=== PATIENT | male | born 1990 | race Caucasian/White ===

== ENCOUNTER 2018-12-04 13:14 | Inpatient (IN) | payer OTHER ==
[2018-12-04 16:02] VITALS: BMI 23.6
--- NOTE | 2018-12-04 20:15 | HP ---
CIWA Score - Admission Criteria OASAS Guidelines: Admission for Medically Managed Detox: Requires at least one of the followin. CIWA greater than 12 2. Seizures within the past 24 hours 3. Delirium tremens within the past 24 hours 4. Hallucinations within the past 24 hours 5. Acute intervention needed for co occurring medical disorder 6. Acute intervention needed for co occurring psychiatric disorder 7. Severe withdrawal that cannot be handled at a lower level of care (continued vomiting, continued diarrhea, abnormal vital signs) requiring intravenous medication and/or fluids 8. Admission ROS S - HPI Chief Complaint: Seeking admission to Rehab for heroin and Xanax dependence Allergies/Adverse Reactions: Allergies Allergy/AdvReac Type Severity Reaction Status Date / Time No Known Allergies Allergy Verified 12/04/18 17:52 History of Present Illness: 28 years old male with a 10 years history of heroin and Xanax dependence is seeking admission to Rehab. Patient has been in Rehab. at the [facility] in [place]. He has medical history of Hep. C and anxiety. This is his first admission to [facility]. He denies suicide attempt and suicidal ideation at this time. He is on methadone 150mg at [facility]. Last day medicated was today, 12/04/2018. Dose is yet to be verified by the nurse. Wound care daily to bilateral ankle ordered. Exam Limitations: No Limitations - Ebola screening Have you traveled outside of the country in the last 21 days: No Have you had contact with anyone from an Ebola affected area: No Have you been sick,other than usual withdrawal symptoms: No Do you have a fever: No - Review of Systems Constitutional: No Symptoms Reported EENT: reports: No Symptoms Reported Respiratory: reports: No Symptoms reported Cardiac: reports: No Symptoms Reported GI: reports: No Symptoms Reported : reports: No Symptoms Reported Musculoskeletal: reports: No Symptoms Reported Integumentary: reports: No Symptoms Reported Neuro: reports: No Symptoms reported Endocrine: reports: No Symptoms Reported Hematology: reports: No Symptoms Reported Psychiatric: reports: No Sypmtoms Reported, Mood/Affect Appropiate, Orientated x3 Other Systems: Reviewed and Negative Patient History - Patient Medical History Hx Anemia: No Hx Asthma: No Hx Chronic Obstructive Pulmonary Disease (COPD): No Hx Cancer: No Hx Cardiac Disorders: No Hx Congestive Heart Failure: No Hx Hypertension: No Hx Hypercholesterolemia: No HX Cerebrovascular Accident: No Hx Seizures: No Hx Diabetes: No Hx Gastrointestinal Disorders: No Hx Liver Disease: Yes (Hep C.) Hx Genitourinary Disorders: No Hx Sexually Transmitted Disorders: No Hx Renal Disease (ESRD): No Hx Thyroid Disease: No Hx Human Immunodeficiency Virus (HIV): No (Negative 2018) Hx Hepatitis C: Yes (Not treated) Hx Depression: No Hx Suicide Attempt: No (Denies suicide attempt/suicidal ideation at this time) Hx Bipolar Disorder: No Hx Schizophrenia: No Other Medical History: Anxiety -Not on treatment - Patient Surgical History Past Surgical History: No - PPD History Previous Implant?: Yes Documented Results: Negative w/o proof Implanted On Prior [facility] Admission?: No PPD to be Administered?: Yes - Reproductive History Patient is a Female of Child Bearing Age (11 -55 yrs old): No (MALE) - Smoking Cessation Smoking history: Current every day smoker Have you smoked in the past 12 months: Yes Aproximately how many cigarettes per day: 20 Hx Chewing Tobacco Use: No Initiated information on smoking cessation: Yes 'Breaking Loose' booklet given: 12/04/18 - Substance & Tx. History Hx Alcohol Use: No Hx Substance Use: Yes Substance Use Type: Cocaine, Heroin, Tranquilizers Hx Substance Use Treatment: Yes ([place], [place]) Family Disease History - Family Disease History Family History: Denies Admission Physical Exam [facility]HS - Vital Signs Vital Signs: Vital Signs - 24 hr 12/04/18 15:58 Temperature 98.3 F Pulse Rate 70 Respiratory 18 Rate Blood Pressure 116/70 - Physical General Appearance: Yes: Within Normal Limits, No Apparent Distress HEENTM: Yes: EOMI, Normal ENT Inspection, Normocephalic, Normal Voice, BOO Respiratory: Yes: Lungs Clear, Normal Breath Sounds, No Respiratory Distress Neck: Yes: Supple Breast: Yes: Breast Exam Deferred Cardiology: Yes: Regular Rhythm, Regular Rate Abdominal: Yes: Normal Bowel Sounds, Soft Genitourinary: Yes: Within Normal Limits Back: Yes: Normal Inspection Musculoskeletal: Yes: Within Normal Limits Neurological: Yes: Normal Mood/Affect Integumentary: Yes: Warm Lymphatic: Yes: Within Normal Limits - Diagnostic (1) Hep C w/o coma, chronic Current Visit: Yes Status: Chronic (2) Anxiety Current Visit: Yes Status: Chronic (3) Nicotine dependence Current Visit: Yes Status: Chronic Qualifiers: Nicotine product type: cigarettes Substance use status: uncomplicated Qualified Code(s): F17.210 - Nicotine dependence, cigarettes, uncomplicated (4) Heroin dependence Current Visit: Yes Status: Chronic (5) Cocaine dependence Current Visit: Yes Status: Chronic Qualifiers: Substance use status: uncomplicated Qualified Code(s): F14.20 - Cocaine dependence, uncomplicated (6) Methadone maintenance therapy patient Current Visit: Yes Status: Chronic Cleared for Admission [facility] - Detox or Rehab [facility] Level of Care: Observation Bed Claeared for Rehab Admission: Yes [facility] Breath Alcohol Content Breath Alcohol Content: 0 Urine Drug Screen - Results Drug Screen Negative: No Urine Drug Screen Results: THC-Marijuana, OPI-Opiates, MTD-Methadone Inpatient Rehab Admission - Initial Determination Are CD services needed?: Yes Free of communicable disease: Yes Not in need of hospitalization: Yes - Rehab Admission Criteria Previous failed treatment: Yes Poor recovery environment: Yes Comorbidities: Yes Lacks judgement: No Patient is meeting Inpatient Rehab admission criteria:: Yes
[2018-12-04] MEDS ORDERED: NICOTINE POLACRILEX 2 MG GUM BUC PRN (20:29)
[2018-12-04] MEDS ORDERED: MENTHOL/PHENOL 1 EACH UD MM PRN (20:29)
[2018-12-04] MEDS ORDERED: IBUPROFEN 400 MG TABLET (FP) PO PRN (20:29)
[2018-12-04] MEDS ORDERED: ACETAMINOPHEN 325 MG TABLET (FP) PO PRN (20:29)
[2018-12-04] MEDS ORDERED: LOPERAMIDE HCL 2 MG CAPSULE PO PRN (20:29)
[2018-12-04] MEDS ORDERED: P-EPHED 60MG/TRIPROLIDI 2.5MG TABLET PO PRN (20:29)
[2018-12-04] MEDS ORDERED: MAG HYDROX/AL HYDROX/SIMETH 30 ML UNIT-DOSE CUP PO PRN (20:29)
[2018-12-04] MEDS ORDERED: MAGNESIUM CITRATE 300 ML BOTTLE PO PRN (20:29)
[2018-12-04] MEDS ORDERED: guaiFENesin/D-METHORPHAN HB 10 ML UNIT-DOSE CUPS PO PRN (20:29)
[2018-12-04] MEDS ORDERED: MAGNESIUM HYDROX 2400MG/30ML ORAL SUSPENSION 30 ML CUP PO PRN (20:29)
[2018-12-04] MEDS: TOLNAFTATE 1% POWDER 45 GM POW TP SCH (23:51)
[2018-12-04] MEDS ORDERED: TUBERCULIN PPD 5 TU/0.1ML VIAL ID ONE (23:55)
[2018-12-04] MEDS: MELATONIN 5 MG TABLETS PO PRN (23:57)
[2018-12-04] MEDS: hydrOXYzine PAMOATE 25 MG CAPSULE (FP) PO PRN (23:58)
[2018-12-05] MEDS ORDERED: METHADONE HCL 10 MG TABLET PO SCH (09:30)
[2018-12-05 10:00] LABS: HEMATOCRIT 42.1 % (35.4-49); HEMOGLOBIN 13.6 GM/dL (11.7-16.9); MCH 28.4 pg (25.7-33.7); MCHC 32.4 g/dl (32.0-35.9); MEAN CELL VOLUME 87.5 fl (80-96); MEAN PLT VOLUME 8.7 fl (7.5-11.1); PLATELET COUNT 234 K/MM3 (134-434); RBC 4.81 M/mm3 (4.00-5.60); RDW 12.7 % (11.9-15.9); WHITE BLOOD COUNT 6.9 K/mm3 (4.0-10.0)
[2018-12-05 10:10] LABS: URINE APPEARANCE CLEAR; URINE BILIRUBIN NEGATIVE (<2.0 mg/dL); URINE COLOR YELLOW; URINE GLUCOSE (UA) NEGATIVE (NEGATIVE); URINE KETONE NEGATIVE (NEGATIVE); URINE LEUK ESTERASE NEGATIVE (NEGATIVE); URINE NITRITE NEGATIVE (NEGATIVE); URINE PROTEIN NEGATIVE (NEGATIVE); URINE UROBILINOGEN NEGATIVE mg/dL (0.2-1.0)
[2018-12-05] MEDS ORDERED: METHADONE HCL 10 MG TABLET PO ONE (10:22)
[2018-12-05] MEDS ORDERED: METHADONE HCL 10 MG TABLET ONE (10:39)
[2018-12-05] MEDS ORDERED: METHADONE HCL 40 MG DISPERSABLE TABLET ONE (10:40)
[2018-12-05] MEDS: NICOTINE 21 MG/24 HOURS TOPICAL PATCH TD SCH (10:42)
[2018-12-05] MEDS: PRENATAL VITAMINS W/ FOLIC ACID TABLET (FP) PO SCH (10:42)
[2018-12-05] MEDS ORDERED: METHADONE 120 MG, METHADONE 30 MG PO ONE (10:45)
[2018-12-05] MEDS: TOLNAFTATE 1% POWDER 45 GM POW TP SCH ×2 (10:46→21:43)
[2018-12-05 11:01] LABS: ALBUMIN 3.2 g/dl (3.4-5.0); ALK PHOS 81 U/L (45-117); ANION GAP 6 MMOL/L (8-16); BILIRUBIN,TOTAL 0.3 mg/dL (0.2-1); BLOOD UREA NITROGEN 11 mg/dL (7-18); CALCIUM 8.5 mg/dL (8.5-10.1); CHLORIDE 105 mmol/L (98-107); CO2 27 mmol/L (21-32); CREATININE 0.8 mg/dL (0.55-1.3); GLUCOSE,RANDOM 75 mg/dL (74-106); POTASSIUM 4.2 mmol/L (3.5-5.1); SGOT/AST 27 U/L (15-37); SGPT/ALT 33 U/L (13-61); SODIUM 138 mmol/L (136-145); TOT PROT 6.7 g/dl (6.4-8.2)
[2018-12-05] MEDS: MELATONIN 5 MG TABLETS PO PRN (21:42)
[2018-12-05] MEDS: THIAMINE HCL 100 MG TABLET (FP) PO SCH ×2 (21:42)
[2018-12-05] MEDS: hydrOXYzine PAMOATE 25 MG CAPSULE (FP) PO PRN (21:42)
[2018-12-06] MEDS ORDERED: METHADONE HCL 40 MG DISPERSABLE TABLET ONE (05:43)
[2018-12-06] MEDS ORDERED: METHADONE HCL 10 MG TABLET ONE (05:43)
[2018-12-06] MEDS: METHADONE 120 MG, METHADONE 30 MG PO SCH (06:14)
[2018-12-06] MEDS: TOLNAFTATE 1% POWDER 45 GM POW TP SCH ×2 (09:35→21:12)
[2018-12-06] MEDS: PRENATAL VITAMINS W/ FOLIC ACID TABLET (FP) PO SCH (09:35)
[2018-12-06] MEDS: NICOTINE 21 MG/24 HOURS TOPICAL PATCH TD SCH (09:35)
[2018-12-06] MEDS: THIAMINE HCL 100 MG TABLET (FP) PO SCH (21:11)
[2018-12-06] MEDS: hydrOXYzine PAMOATE 25 MG CAPSULE (FP) PO PRN (21:11)
[2018-12-06] MEDS: MELATONIN 5 MG TABLETS PO PRN (21:11)
[2018-12-07] MEDS ORDERED: METHADONE HCL 10 MG TABLET ONE (02:54)
[2018-12-07] MEDS ORDERED: METHADONE HCL 40 MG DISPERSABLE TABLET ONE (02:54)
[2018-12-07] MEDS: METHADONE 120 MG, METHADONE 30 MG PO SCH (06:09)
[2018-12-07 06:40] VITALS: BP 129/76; PULSE 70; TEMP 98
--- NOTE | 2018-12-07 07:56 | HP ---
Psychiatrist Admission - Data Date of interview: 12/07/18 Admission source: [facility] Identifying data: This is the first [facility] admission for this 28 years old male, unemployed with no source of income, homeless Medical History: Significant for treatment of hepatitis C. Patient is on methadone 150 g/day. Smokes cigarettes 1 ppd Psychiatric History: Reports receiving treatment for anxiety for the past 10 years. Reports being tried on Klonopin, Xanax, Valium and Buspar. Reports receiving treatment last 2 months ago in [place]. Claims that he was prescribed Xanax 2 mg po QID. Denies history of previous hospitalization or suicidal attempt. At present, denies feeling anxious, depressed and reports sleeping fairly well Physical/Sexual Abuse/Trauma History: Denies history of emotional, physical or sexual abuse as well as DV relationship. No service Additional Comment: Denies criminal history Vital Signs: Vital Signs - 24 hr 12/07/18 12/07/18 12/07/18 00:30 03:26 06:00 Temperature 98.0 F Pulse Rate 70 Respiratory 16 16 18 Rate Blood Pressure 129/76 Allergies/Adverse Reactions: Allergies Allergy/AdvReac Type Severity Reaction Status Date / Time No Known Allergies Allergy Verified 12/04/18 17:52 Date of last physical exam: 12/04/18 Concur with the findings of this exam: Yes - Substance Abuse/Tx History Hx Alcohol Use: No Hx Substance Use: Yes Substance Use Type: Cocaine (Started using cocaine t age 16, consumes $40 worth daily. Last used on 12/03/18), Heroin (Started using heroin at age 16, consumes 15 bags daily. Last used on 12/03/18), Tranquilizers (Started using xanax at age 16, consumes 10 mg daily. Last used on 12/03/18) Mental Status Exam - Mental Status Exam Alert and Oriented to: Time, Place, Person Cognitive Function: Fair Patient Appearance: Well Groomed Mood: Hopeful, Euthymic Patient Behavior: Cooperative Voice Loudness: Normal Thought Process: Intact, Goal Oriented Thought Disorder: Not Present Hallucinations: Denies Suicidal Ideation: Denies Homicidal Ideation: Denies Insight/Judgement: Fair Sleep: Fair Appetite: Good Muscle strength/Tone: Normal Gait/Station: Normal Psychiatric Findings - Problem List ([place] 1, 2,3) (1) Cocaine dependence Current Visit: Yes Status: Acute Qualifiers: Substance use status: uncomplicated Qualified Code(s): F14.20 - Cocaine dependence, uncomplicated (2) Sedative hypnotic or anxiolytic dependence Current Visit: Yes Status: Acute (3) Opioid dependence on agonist therapy Current Visit: Yes Status: Chronic (4) Nicotine dependence Current Visit: Yes Status: Chronic Qualifiers: Nicotine product type: cigarettes Substance use status: uncomplicated Qualified Code(s): F17.210 - Nicotine dependence, cigarettes, uncomplicated (5) Substance-induced anxiety disorder Current Visit: Yes Status: Chronic - Initial Treatment Plan Initial Treatment Plan: Monitor progress
[2018-12-07] MEDS: NICOTINE 21 MG/24 HOURS TOPICAL PATCH TD SCH (09:41)
[2018-12-07] MEDS: PRENATAL VITAMINS W/ FOLIC ACID TABLET (FP) PO SCH (09:41)
[2018-12-07] MEDS: TOLNAFTATE 1% POWDER 45 GM POW TP SCH (09:42)
[2018-12-07] MEDS ORDERED: PT OWN MED DRAWER 7, Y5N ONE (16:21)
== END 2018-12-07 16:45 | disposition left against medical advice (07) | DRG 770 ==
LOC: YASAS 13:14 → Y3W 21:12
PROVIDERS: ADMIT Psychiatry & Neurology Psychiatry; ATTEND Psychiatry & Neurology Psychiatry
PROC: HZ42ZZZ Group Counseling for Substance Abuse Treatment, Cognitive-Behavioral (ICD-10-PCS; principal; 2018-12-04)
DX: F13.20 Sedative, hypnotic or anxiolytic dependence, uncomplicated (principal); F14.20 Cocaine dependence, uncomplicated; F11.20 Opioid dependence, uncomplicated; F17.210 Nicotine dependence, cigarettes, uncomplicated; F19.280 Other psychoactive substance dependence with psychoactive substance-induced anxiety disorder; B18.2 Chronic viral hepatitis C
CPT/HCPCS: 36415; 80053; 81003; 85027; 86593

== ENCOUNTER 2020-12-03 18:30 | Inpatient (IN) | payer OTHER ==
[2020-12-03 19:13] VITALS: BMI 20.5
[2020-12-03] MEDS ORDERED: ONDANSETRON *ODT* 4 MG TABLET SL PRN (19:45)
[2020-12-03] MEDS ORDERED: BISMUTH SUBSALICYLATE 524 MG/30 ML UD PO PRN (19:45)
[2020-12-03] MEDS ORDERED: MAGNESIUM CITRATE 300 ML BOTTLE PO PRN (19:45)
[2020-12-03] MEDS ORDERED: MAG HYDROX/AL HYDROX/SIMETH 30 ML UNIT-DOSE CUP PO PRN (19:45)
[2020-12-03] MEDS ORDERED: MAGNESIUM HYDROX 2400MG/30ML ORAL SUSPENSION 30 ML CUP PO PRN (19:45)
[2020-12-03] MEDS ORDERED: ACETAMINOPHEN 325 MG TABLET (FP) PO PRN ×2 (19:45)
[2020-12-03] MEDS ORDERED: MENTHOL/PHENOL 1 EACH UD MM PRN (19:45)
[2020-12-03] MEDS ORDERED: IBUPROFEN 400 MG TABLET (FP) PO PRN (19:45)
[2020-12-03] MEDS: MELATONIN 5 MG TABLETS PO SCH (22:05)
[2020-12-03] MEDS: hydrOXYzine PAMOATE 25 MG CAPSULE (FP) PO SCH (22:06)
[2020-12-03] MEDS: LORazepam 2 MG TABLET PO SCH (22:06)
[2020-12-03] MEDS: NICOTINE 21 MG/24 HOURS TOPICAL PATCH TD SCH (22:07)
[2020-12-03] MEDS: NICOTINE POLACRILEX 2 MG GUM BUC PRN (22:07)
[2020-12-03] MEDS: THIAMINE HCL 100 MG TABLET (FP) PO SCH (22:07)
[2020-12-04] MEDS: hydrOXYzine PAMOATE 25 MG CAPSULE (FP) PO SCH ×5 (05:16→22:39)
[2020-12-04] MEDS: LORazepam 2 MG TABLET PO SCH ×4 (05:16→22:39)
[2020-12-04] MEDS: METHOCARBAMOL 500 MG TABLET PO PRN (07:15)
[2020-12-04] MEDS ORDERED: METHADONE HCL 10 MG TABLET PO ONE (08:58)
[2020-12-04] MEDS ORDERED: METHADONE HCL 40 MG DISPERSABLE TABLET ONE (09:30)
[2020-12-04] MEDS ORDERED: METHADONE HCL 10 MG TABLET ONE (09:30)
[2020-12-04] MEDS: METHADONE 200 MG, METHADONE 20 MG PO SCH (09:31)
[2020-12-04] MEDS: NICOTINE 21 MG/24 HOURS TOPICAL PATCH TD SCH (10:22)
[2020-12-04] MEDS: PRENATAL VITAMINS W/ FOLIC ACID TABLET (FP) PO SCH (10:23)
[2020-12-04] MEDS: SELENIUM SULFIDE 2.5% LOTION 4 OZ. TP SCH (11:29)
[2020-12-04] MEDS: TOLNAFTATE 1% CREAM 15 GM TUBE TP SCH ×2 (11:29→22:44)
[2020-12-04 11:52] LABS: URINE APPEARANCE Error; URINE BILIRUBIN NEGATIVE (NEGATIVE); URINE COLOR DK YELLOW; URINE GLUCOSE (UA) NEGATIVE (NEGATIVE); URINE KETONE NEGATIVE (NEGATIVE); URINE LEUK ESTERASE NEGATIVE (NEGATIVE); URINE NITRITE NEGATIVE (NEGATIVE); URINE PROTEIN NEGATIVE (NEGATIVE)
[2020-12-04 11:53] LABS: HEMATOCRIT 39.7 % (35.4-49); HEMOGLOBIN 13.3 GM/dL (11.7-16.9); MCH 29.2 pg (25.7-33.7); MCHC 33.5 g/dl (32.0-35.9); MEAN CELL VOLUME 87.3 fl (80-96); MEAN PLT VOLUME 9.1 fl (7.5-11.1); PLATELET COUNT 249 K/MM3 (134-434); RBC 4.55 M/mm3 (4.00-5.60); RDW 13.2 % (11.9-15.9); WHITE BLOOD COUNT 12.9 K/mm3 (4.0-10.0)
[2020-12-04 11:54] LABS: POTASSIUM 4.1 mmol/L (3.5-5.1)
[2020-12-04 12:00] LABS: ALBUMIN 3.8 g/dl (3.4-5.0); BLOOD UREA NITROGEN 14.3 mg/dL (7-18); CALCIUM 9.1 mg/dL (8.5-10.1)
[2020-12-04 12:04] LABS: BILIRUBIN,TOTAL 0.8 mg/dL (0.2-1); CREATININE 0.9 mg/dL (0.55-1.3); TOT PROT 7.4 g/dl (6.4-8.2)
[2020-12-04] MEDS: GABAPENTIN 300 MG CAPSULE PO SCH ×2 (14:42→22:39)
[2020-12-04] MEDS: NICOTINE POLACRILEX 2 MG GUM BUC PRN ×2 (14:44→17:18)
[2020-12-04] MEDS: LORazepam 1 MG TABLET PO PRN (14:53)
[2020-12-04] MEDS ORDERED: IBUPROFEN 400 MG TABLET (FP) PO ONE (21:00)
[2020-12-04] MEDS: THIAMINE HCL 100 MG TABLET (FP) PO SCH (22:38)
[2020-12-04] MEDS: MELATONIN 5 MG TABLETS PO SCH (22:38)
[2020-12-05] MEDS ORDERED: METHADONE HCL 10 MG TABLET ONE (04:05)
[2020-12-05] MEDS ORDERED: METHADONE HCL 40 MG DISPERSABLE TABLET ONE (04:06)
[2020-12-05] MEDS: METHADONE 200 MG, METHADONE 20 MG PO SCH (05:48)
[2020-12-05] MEDS: LORazepam 1 MG TABLET PO SCH ×4 (05:48→22:25)
[2020-12-05] MEDS: GABAPENTIN 300 MG CAPSULE PO SCH ×3 (05:48→22:25)
[2020-12-05] MEDS: hydrOXYzine PAMOATE 25 MG CAPSULE (FP) PO SCH ×5 (05:49→22:25)
[2020-12-05] MEDS ORDERED: METHADONE HCL 40 MG DISPERSABLE TABLET PO SCH (06:00)
[2020-12-05] MEDS: NICOTINE 21 MG/24 HOURS TOPICAL PATCH TD SCH (10:43)
[2020-12-05] MEDS: SELENIUM SULFIDE 2.5% LOTION 4 OZ. TP SCH (10:43)
[2020-12-05] MEDS: PRENATAL VITAMINS W/ FOLIC ACID TABLET (FP) PO SCH (10:43)
[2020-12-05 10:51] LABS: HEMATOCRIT 42.3 % (35.4-49); MCH 29.5 pg (25.7-33.7); MCHC 33.1 g/dl (32.0-35.9); MEAN CELL VOLUME 89.1 fl (80-96); MEAN PLT VOLUME 9.3 fl (7.5-11.1); PLATELET COUNT 236 K/MM3 (134-434); RBC 4.75 M/mm3 (4.00-5.60); RDW 13.6 % (11.9-15.9); WHITE BLOOD COUNT 13.8 K/mm3 (4.0-10.0)
[2020-12-05] MEDS: TOLNAFTATE 1% CREAM 15 GM TUBE TP SCH ×2 (10:54→22:25)
[2020-12-05 12:14] LABS: HIV INTERPRETATION NEGATIVE (NEGATIVE)
[2020-12-05] MEDS: LORazepam 1 MG TABLET PO PRN (13:43)
[2020-12-05] MEDS ORDERED: CLINDAMYCIN HCL 150 MG CAPSULE (FP) PO ONE (13:59)
[2020-12-05] MEDS: NICOTINE POLACRILEX 2 MG GUM BUC PRN ×2 (16:21→22:29)
[2020-12-05] MEDS: METHOCARBAMOL 500 MG TABLET PO PRN (17:07)
[2020-12-05] MEDS: CLINDAMYCIN HCL 150 MG CAPSULE (FP) PO SCH ×2 (17:07→23:01)
[2020-12-05] MEDS: MELATONIN 5 MG TABLETS PO SCH (22:24)
[2020-12-05] MEDS: THIAMINE HCL 100 MG TABLET (FP) PO SCH (22:25)
[2020-12-06] MEDS ORDERED: LORazepam 0.5 MG TABLET PO PRN
[2020-12-06] MEDS ORDERED: METHADONE HCL 10 MG TABLET ONE (04:15)
[2020-12-06] MEDS ORDERED: METHADONE HCL 40 MG DISPERSABLE TABLET ONE (04:16)
[2020-12-06] MEDS: hydrOXYzine PAMOATE 25 MG CAPSULE (FP) PO SCH ×5 (05:17→22:26)
[2020-12-06] MEDS: CLINDAMYCIN HCL 150 MG CAPSULE (FP) PO SCH ×3 (05:17→17:43)
[2020-12-06] MEDS: GABAPENTIN 300 MG CAPSULE PO SCH ×3 (05:17→22:25)
[2020-12-06] MEDS: LORazepam 0.5 MG TABLET PO SCH ×4 (05:17→22:26)
[2020-12-06] MEDS: METHADONE 200 MG, METHADONE 20 MG PO SCH (05:18)
[2020-12-06] MEDS: NICOTINE POLACRILEX 2 MG GUM BUC PRN (05:22)
[2020-12-06] MEDS: SELENIUM SULFIDE 2.5% LOTION 4 OZ. TP SCH (10:14)
[2020-12-06] MEDS: PRENATAL VITAMINS W/ FOLIC ACID TABLET (FP) PO SCH (10:14)
[2020-12-06] MEDS: TOLNAFTATE 1% CREAM 15 GM TUBE TP SCH ×2 (10:15→22:26)
[2020-12-06] MEDS: NICOTINE 21 MG/24 HOURS TOPICAL PATCH TD SCH (10:15)
[2020-12-06 17:15] LABS: PH,URINE 5.5 (5.0-8.0); URINE APPEARANCE CLEAR; URINE BILIRUBIN NEGATIVE (NEGATIVE); URINE COLOR YELLOW; URINE GLUCOSE (UA) NEGATIVE (NEGATIVE); URINE KETONE NEGATIVE (NEGATIVE); URINE LEUK ESTERASE NEGATIVE (NEGATIVE); URINE NITRITE NEGATIVE (NEGATIVE); URINE PROTEIN NEGATIVE (NEGATIVE)
[2020-12-06] MEDS: THIAMINE HCL 100 MG TABLET (FP) PO SCH (22:25)
[2020-12-06] MEDS: MELATONIN 5 MG TABLETS PO SCH (22:25)
[2020-12-07] MEDS: CLINDAMYCIN HCL 150 MG CAPSULE (FP) PO SCH ×2 (00:04→05:16)
[2020-12-07] MEDS ORDERED: LORazepam 0.5 MG TABLET PO ONE (05:00)
[2020-12-07] MEDS ORDERED: METHADONE HCL 10 MG TABLET ONE (05:01)
[2020-12-07] MEDS ORDERED: METHADONE HCL 40 MG DISPERSABLE TABLET ONE (05:01)
[2020-12-07] MEDS: GABAPENTIN 300 MG CAPSULE PO SCH (05:16)
[2020-12-07] MEDS: METHADONE 200 MG, METHADONE 20 MG PO SCH (05:16)
[2020-12-07] MEDS: METHOCARBAMOL 500 MG TABLET PO PRN (05:17)
[2020-12-07] MEDS: hydrOXYzine PAMOATE 25 MG CAPSULE (FP) PO SCH (05:17)
[2020-12-07] MEDS: NICOTINE POLACRILEX 2 MG GUM BUC PRN (08:00)
[2020-12-07 09:23] VITALS: BP 121/82; PULSE 97; TEMP 98
== END 2020-12-07 10:16 | disposition home or self-care (01) | DRG 773 ==
LOC: YASAS 18:30 → Y3N 19:49
PROVIDERS: ADMIT Allergy & Immunology; ATTEND Allergy & Immunology
PROC: HZ2ZZZZ Detoxification Services for Substance Abuse Treatment (ICD-10-PCS; principal; 2020-12-03)
DX: F10.230 Alcohol dependence with withdrawal, uncomplicated (principal); F13.230 Sedative, hypnotic or anxiolytic dependence with withdrawal, uncomplicated; F11.20 Opioid dependence, uncomplicated; F14.20 Cocaine dependence, uncomplicated; F15.20 Other stimulant dependence, uncomplicated; F12.20 Cannabis dependence, uncomplicated; F17.210 Nicotine dependence, cigarettes, uncomplicated; F19.24 Other psychoactive substance dependence with psychoactive substance-induced mood disorder; F51.05 Insomnia due to other mental disorder; F41.9 Anxiety disorder, unspecified; L03.113 Cellulitis of right upper limb; B18.2 Chronic viral hepatitis C; M54.5 Low back pain; G89.29 Other chronic pain; R50.9 Fever, unspecified; R63.4 Abnormal weight loss; Z68.20 Body mass index [BMI] 20.0-20.9, adult; Z86.69 Personal history of other diseases of the nervous system and sense organs; Z88.8 Allergy status to other drugs, medicaments and biological substances; Z59.0 Homelessness
CPT/HCPCS: 36415; 80053; 81003; 85027; 86780; 87389; 93005; 93010; C9803; Q0162; U0003

== ENCOUNTER 2023-02-28 14:25 | Inpatient (IN) | payer OTHER ==
[2023-02-28 03:07] VITALS: BMI 32.5
[2023-02-28] MEDS: LORazepam 2 MG TABLET PO ONE (10:08)
[2023-02-28] MEDS ORDERED: IBUPROFEN 400 MG TABLET (FP) PO PRN (16:22)
[2023-02-28] MEDS ORDERED: POLYETHYLENE GLYCOL (HEALTHYLAX) 3350 17 GM PACKET PO PRN (16:22)
[2023-02-28] MEDS ORDERED: NALOXONE HCL (KLOXXADO) 8 MG SPRAY NS PRN (16:22)
[2023-02-28] MEDS ORDERED: BENZONATATE 200 MG CAPSULE PO PRN (16:22)
[2023-02-28] MEDS ORDERED: IBUPROFEN 600 MG TABLET (FP) PO PRN (16:22)
[2023-02-28] MEDS ORDERED: DICYCLOMINE HCL 10 MG CAPSULE PO PRN (16:22)
[2023-02-28] MEDS ORDERED: MAGNESIUM HYDROX 2400MG/30ML ORAL SUSPENSION 30 ML CUP PO PRN (16:22)
[2023-02-28] MEDS ORDERED: ACETAMINOPHEN 325 MG TABLET (FP) PO PRN (16:22)
[2023-02-28] MEDS ORDERED: METHOCARBAMOL 500 MG TABLET PO PRN (16:22)
[2023-02-28] MEDS ORDERED: ONDANSETRON *ODT* 4 MG TABLET SL PRN (16:22)
[2023-02-28] MEDS ORDERED: BENZOCAINE/MENTHOL (CHLORASEPTIC ) LOZENGE MM PRN (16:22)
[2023-02-28] MEDS ORDERED: hydrOXYzine PAMOATE 25 MG CAPSULE (FP) PO PRN (16:22)
[2023-02-28] MEDS ORDERED: LOPERAMIDE HCL 2 MG CAPSULE PO PRN (16:22)
[2023-02-28] MEDS ORDERED: guaiFENesin 600 MG TABLET.ER (FP) PO PRN (16:22)
[2023-02-28] MEDS ORDERED: NALOXONE HCL 0.4 MG/ML VIAL IM PRN (16:22)
[2023-02-28] MEDS ORDERED: BISMUTH SUBSALICYLATE 524 MG/30 ML PO PRN (16:22)
[2023-02-28] MEDS ORDERED: MAG HYDROX/AL HYDROX/SIMETH 30 ML UNIT-DOSE CUP PO PRN (16:22)
[2023-02-28] MEDS ORDERED: methaDONE HCL 10 MG TABLET PO ONE (23:34)
[2023-03-01] MEDS: LORazepam 2 MG TABLET PO SCH ×5 (00:50→22:24)
[2023-03-01] MEDS: LORazepam 2 MG TABLET PO ONE (00:50)
[2023-03-01] MEDS: CEPHALEXIN MONOHYDRATE 500 MG CAPSULE (UD) PO SCH ×6 (00:50→22:24)
[2023-03-01] MEDS: THIAMINE HCL 100 MG TABLET (FP) PO SCH ×2 (00:51→22:23)
[2023-03-01] MEDS: MELATONIN 5 MG TABLETS PO SCH ×2 (01:23→22:23)
[2023-03-01] MEDS ORDERED: methaDONE HCL 10 MG TABLET PO SCH (08:15)
[2023-03-01] MEDS: PRENATAL VITAMINS W/ FOLIC ACID TABLET (FP) PO SCH (10:36)
[2023-03-01] MEDS: NICOTINE 10 MG CARTRIDGE (INHALER) IH PRN ×3 (11:07→22:22)
[2023-03-01] MEDS: LORazepam 1 MG TABLET PO PRN (15:34)
[2023-03-02] MEDS: NICOTINE 10 MG CARTRIDGE (INHALER) IH PRN ×4 (05:46→22:27)
[2023-03-02] MEDS: LORazepam 1 MG TABLET PO SCH ×4 (05:46→22:29)
[2023-03-02] MEDS: CEPHALEXIN MONOHYDRATE 500 MG CAPSULE (UD) PO SCH ×4 (05:47→22:29)
[2023-03-02 09:40] LABS: PH,URINE 7.5 (5.0-8.0); URINE APPEARANCE CLEAR; URINE BILIRUBIN NEGATIVE (NEGATIVE); URINE COLOR YELLOW; URINE GLUCOSE (UA) NEGATIVE (NEGATIVE); URINE KETONE NEGATIVE (NEGATIVE); URINE LEUK ESTERASE NEGATIVE (NEGATIVE); URINE NITRITE NEGATIVE (NEGATIVE); URINE PROTEIN NEGATIVE (NEGATIVE)
[2023-03-02] MEDS: PRENATAL VITAMINS W/ FOLIC ACID TABLET (FP) PO SCH (10:28)
[2023-03-02] MEDS: LORazepam 1 MG TABLET PO PRN (15:20)
[2023-03-02] MEDS: MELATONIN 5 MG TABLETS PO SCH (22:28)
[2023-03-02] MEDS: THIAMINE HCL 100 MG TABLET (FP) PO SCH (22:28)
[2023-03-03] MEDS: LORazepam 0.5 MG TABLET PO SCH ×5 (05:37→23:06)
[2023-03-03] MEDS: CEPHALEXIN MONOHYDRATE 500 MG CAPSULE (UD) PO SCH ×4 (05:37→22:22)
[2023-03-03] MEDS: NICOTINE 10 MG CARTRIDGE (INHALER) IH PRN ×4 (05:40→22:20)
[2023-03-03] MEDS: PRENATAL VITAMINS W/ FOLIC ACID TABLET (FP) PO SCH (10:16)
[2023-03-03] MEDS ORDERED: LORazepam 0.5 MG TABLET PO SCH (17:15)
[2023-03-03 21:49] VITALS: RESP 18
[2023-03-03] MEDS: THIAMINE HCL 100 MG TABLET (FP) PO SCH (22:22)
[2023-03-03] MEDS: MELATONIN 5 MG TABLETS PO SCH (22:22)
[2023-03-04] MEDS ORDERED: LORazepam 0.5 MG TABLET PO ONE (05:00)
[2023-03-04] MEDS: CEPHALEXIN MONOHYDRATE 500 MG CAPSULE (UD) PO SCH (05:48)
[2023-03-04] MEDS: NICOTINE 10 MG CARTRIDGE (INHALER) IH PRN (05:51)
[2023-03-04 09:49] VITALS: BP 146/86; PULSE 86; TEMP 98
== END 2023-03-04 09:35 | disposition home or self-care (01) | DRG 773 ==
LOC: YASAS 14:25 → Y5N 20:39 → Y3N 22:58
PROVIDERS: ADMIT Allergy & Immunology; ATTEND Allergy & Immunology
PROC: HZ2ZZZZ Detoxification Services for Substance Abuse Treatment (ICD-10-PCS; principal; 2023-02-28)
DX: F11.23 Opioid dependence with withdrawal (principal); F13.20 Sedative, hypnotic or anxiolytic dependence, uncomplicated; F14.20 Cocaine dependence, uncomplicated; F17.210 Nicotine dependence, cigarettes, uncomplicated; F19.280 Other psychoactive substance dependence with psychoactive substance-induced anxiety disorder; L97.909 Non-pressure chronic ulcer of unspecified part of unspecified lower leg with unspecified severity; L03.818 Cellulitis of other sites; E66.9 Obesity, unspecified; Z68.32 Body mass index [BMI] 32.0-32.9, adult; Z86.19 Personal history of other infectious and parasitic diseases; Z88.8 Allergy status to other drugs, medicaments and biological substances
CPT/HCPCS: 36415; 73630-TC-LT; 73630-TC-RT-FY; 80053; 81003; 85025; C9803-CS; U0003; U0005